=== PATIENT | female | born 1980 | race Caucasian/White ===

== ENCOUNTER 2017-03-01 06:24 | Emergency (ER) | payer OTHER ==
[~2017-03-01] VITALS: Ht 167.6 cm; Wt 88.4 kg
[~2017-03-01 06:24] MED LIST: AMPH30TA2 PO; CITA40TA12 PO; FERR1TAB23 PO; HYDR-5688 PO; RANI300T2 PO; WLLSR/300 PO
[2017-03-01 06:25] VITALS: TEMP 36.7; Ht 167.6 cm; Wt 88.4 kg
[2017-03-01] MEDS ORDERED: ONDANSETRON INJ 2 MG/ML 2 ML VIAL IV STA (06:40)
[2017-03-01] MEDS ORDERED: SODIUM CHLORIDE 0.9% 1000ML 1,000 ML IV STA (06:40)
[2017-03-01 06:48] LABS: BASO % 0.7 %; BASO ABS # 0.05 K/uL (0-0.2); COMPLETE YES; EOS % 2.1 %; HEMATOCRIT 42.9 % (37-47); IG% 0.4 %; LYMPH ABS # 2.01 K/uL (1.2-3.4); MEAN CELL VOLUME 95.3 fL (80-100); MEAN CORPUSCULAR HEMOGLOBIN 28.9 pg (25-34); MEAN CORPUSCULAR HGB CONC 30.3 g/dl (32-36); MEAN PLATELET VOLUME 9.1 fL (7.4-10.4); MONO % 8.4 %; NEUT % 58.4 %; PLATELET COUNT 474 K/uL (130-400)
[2017-03-01] MEDS ORDERED: LIDOCAINE HCL 2% VISC SOLN 20 ML UDC PO STA (06:52)
[2017-03-01] MEDS ORDERED: KETOROLAC TROMETHAMINE 30 MG/ML VIAL IV STA (06:52)
[2017-03-01] MEDS ORDERED: ALUMINUM/MAGNESIUM SUSP 30 ML UDC PO STA (06:52)
[2017-03-01 07:08] LABS: ALT/SGPT 20 U/L (12-78); BLOOD UREA NITROGEN 8 mg/dl (7-18); BUN/CREATININE RATIO 10.8 (10-20); CARBON DIOXIDE 27 mmol/L (21-32); CHLORIDE 106 mmol/L (98-107); CREATININE 0.76 mg/dl (0.60-1.20); GLUCOSE 62 mg/dl (70-99); POTASSIUM 3.3 mmol/L (3.5-5.1); SODIUM 142 mmol/L (136-145)
[2017-03-01 07:09] LABS: CALCIUM 8.8 mg/dl (8.5-10.1)
[2017-03-01 07:11] LABS: ALKALINE PHOSPHATASE 89 U/L (45-117); AST/SGOT 17 U/L (15-37)
--- NOTE | 2017-03-01 07:11 | DIAGNOSTIC IMAGING REPORT ---
CHEST ONE VIEW PORTABLE CLINICAL HISTORY: Abdominal pain. COMPARISON STUDY: No previous studies for comparison. FINDINGS: No lucency is identified under the hemidiaphragms to suggest pneumoperitoneum on this exam. Lung volumes are normal. There is no pneumothorax or pleural effusion. Cardiac size is normal. Mediastinal contours are normal. There is no evidence of pulmonary edema. IMPRESSION: No acute cardiopulmonary findings. Electronically signed by: Jesus Dobson M.D. 03/01/2017 7:10 AM Dictated Date/Time: 03/01/2017 7:09 AM
[2017-03-01 07:51] LABS: URINE APPEARANCE CLOUDY (CLEAR); URINE BILIRUBIN NEG (NEG); URINE COLOR DK YELLOW; URINE EPITHELIAL CELL AUTO >30 /lpf (0-5); URINE NITRITE NEG (NEG); URINE PH 5.5 (4.5-7.5); URINE SPECIFIC GRAVITY 1.027 (1.000-1.030); UROBILINOGEN NEG (NEG); ZZUR CULT IF INDIC CLEAN CATCH YES
[2017-03-01 07:54] LABS: MANUAL MICROSCOPIC REQUIRED? NO; REVIEW REQ? YES
[2017-03-01 08:06] LABS: URINE MUCUS PRESENT (NONE PRSENT)
[2017-03-01] MEDS ORDERED: CRFL PO (09:06)
--- NOTE | 2017-03-01 09:07 | EMERGENCY ROOM VISIT NOTE ---
History Report prepared by Mere: Jasmin Molina Under the Supervision of: Dr. Cain Lewis D.O. First contact with patient: 06:39 Chief Complaint: ABDOMINAL PAIN Stated Complaint: BURNING PAIN IN MIDDLE OF STOMACH History of Present Illness The patient is a 36 year old female who presents to the Emergency Room with complaints of worsening upper mid and left-sided abdominal pain that started this morning. She describes the pain as burning. The pain radiates into her back bilaterally. She is also experiencing nausea. The patient states that she felt well last night and she denies any recent changes in her diet. The patient ate a quarter of a chicken cheesesteak last night with just lettuce and mayonnaise, but otherwise denies eating anything suspicious. The patient has a history of a hiatal hernia. The patient also has a history of gastric bypass, 2 sections, and a hysterectomy. She states that she had a hysterectomy secondary to a persistent menstrual period for 6 months. The patient denies any other previous abdominal surgeries. She also denies any previous gallbladder problems. Source of History: patient Onset: this morning Position: abdomen (upper mid and left-sided) Quality: burning Timing: worsening Associated Symptoms: + nausea, + back pain Review of Systems See HPI for pertinent positives & negatives. A total of 10 systems reviewed and were otherwise negative. Past Medical & Surgical Medical Problems: (1) Anemia (2) Depression (3) Ovarian cyst Surgical Problems: (1) Gastric bypass status for obesity (2) S/P section (3) S/P hysterectomy Family History No pertinent family history Social History Smoking Status: Never Smoker Alcohol Use: none Marital Status: Housing Status: lives with family Occupation Status: employed Current/Historical Medications Scheduled Amphetamine-Dextroamphetamine 30MG (Adderall 30MG), 30 MG PO BID Bupropion HCl (Wellbutrin Xl), 1 TAB PO DAILY Citalopram Hydrobromide (Celexa), 40 MG PO DAILY Ferrous Sulfate (Iron), 1 TAB PO DAILY Ranitidine (Zantac), 300 MG PO DAILY Sucralfate (Carafate), 10 ML PO BID Allergies Coded Allergies: No Known Allergies (Unverified , 03/01/17) Physical Exam Vital Signs Date Time Temp Pulse Resp B/P (MAP) Pulse Ox O2 Delivery O2 Flow Rate FiO2 03/01/17 08:29 80 18 118/69 100 Room Air 03/01/17 06:25 36.7 100 20 137/81 100 Room Air Physical Exam CONSTITUTIONAL/VITAL SIGNS: Reviewed / noted above. GENERAL: Non-toxic in appearance. INTEGUMENTARY: Warm, dry, and [place]. HEAD: Normocephalic. EYES: without scleral icterus or trauma. ENT/OROPHARYNX: clear and moist. LYMPHADENOPATHY/NECK: Is supple without lymphadenopathy or meningismus. RESPIRATORY: Lungs clear and equal. CARDIOVASCULAR: Regular rate and rhythm. GI/ABDOMEN: Soft. Epigastric and left upper quadrant tenderness. No organomegaly or pulsatile mass. No rebound or guarding. Normal bowel sounds. EXTREMITIES: Warm and well perfused. BACK: No CVA tenderness. NEUROLOGICAL: Intact without focal deficits. PSYCHIATRIC: normal affect. MUSCULOSKELETAL: Normally developed with good muscle tone. Medical Decision & Procedures ER Provider Diagnostic Interpretation: Radiology results as stated below per my review and radiologist interpretation: CHEST ONE VIEW PORTABLE FINDINGS: No lucency is identified under the hemidiaphragms to suggest pneumoperitoneum on this exam. Lung volumes are normal. There is no pneumothorax or pleural effusion. Cardiac size is normal. Mediastinal contours are normal. There is no evidence of pulmonary edema. IMPRESSION: No acute cardiopulmonary findings. Electronically signed by: Jesus Dobson M.D. 03/01/2017 7:10 AM Dictated Date/Time: 03/01/2017 7:09 AM Laboratory Results 03/01/17 06:35 Red Blood Count 4.50, Mean Corpuscular Volume 95.3, Mean Corpuscular Hemoglobin 28.9, Mean Corpuscular Hemoglobin Concent 30.3, Mean Platelet Volume 9.1, Neutrophils (%) (Auto) 58.4, Lymphocytes (%) (Auto) 30.0, Monocytes (%) (Auto) 8.4, Eosinophils (%) (Auto) 2.1, Basophils (%) (Auto) 0.7, Neutrophils # (Auto) 3.91, Lymphocytes # (Auto) 2.01, Monocytes # (Auto) 0.56, Eosinophils # (Auto) 0.14, Basophils # (Auto) 0.05 03/01/17 06:35 Test 03/01/17 06:25 03/01/17 06:35 Urine Color DK YELLOW Urine Appearance CLOUDY (CLEAR) Urine pH 5.5 (4.5-7.5) Urine Specific Arrey 1.027 (1.000-1.030) Urine Protein NEG (NEG) Urine Glucose (UA) NEG (NEG) Urine Ketones TRACE (NEG) Urine Occult Blood NEG (NEG) Urine Nitrite NEG (NEG) Urine Bilirubin NEG (NEG) Urine Urobilinogen NEG (NEG) Urine Leukocyte Esterase NEG (NEG) Urine WBC (Auto) 1-5 /hpf (0-5) Urine RBC (Auto) 0-4 /hpf (0-4) Urine Hyaline Casts (Auto) 1-5 /lpf (0-5) Urine Epithelial Cells (Auto) >30 /lpf (0-5) Urine Bacteria (Auto) 2+ (NEG) Urine Crystals CALCIUM OXALATE (NONE Urine Pathogenic Casts /lpf (0) Urine Mucus PRESENT (NONE PRSENT) White Blood Count 6.70 K/uL (4.8-10.8) Red Blood Count 4.50 M/uL (4.2-5.4) Hemoglobin 13.0 g/dL (12.0-16.0) Hematocrit 42.9 % (37-47) Mean Corpuscular Volume 95.3 fL (80-100) Mean Corpuscular Hemoglobin 28.9 pg (25-34) Mean Corpuscular Hemoglobin Concent 30.3 g/dl (32-36) Platelet Count 474 K/uL (130-400) Mean Platelet Volume 9.1 fL (7.4-10.4) Neutrophils (%) (Auto) 58.4 % Lymphocytes (%) (Auto) 30.0 % Monocytes (%) (Auto) 8.4 % Eosinophils (%) (Auto) 2.1 % Basophils (%) (Auto) 0.7 % Neutrophils # (Auto) 3.91 K/uL (1.4-6.5) Lymphocytes # (Auto) 2.01 K/uL (1.2-3.4) Monocytes # (Auto) 0.56 K/uL (0.11-0.59) Eosinophils # (Auto) 0.14 K/uL (0-0.5) Basophils # (Auto) 0.05 K/uL (0-0.2) RDW Standard Deviation 42.5 fL (36.4-46.3) RDW Coefficient of Variation 12.3 % (11.5-14.5) Immature Granulocyte % (Auto) 0.4 % Immature Granulocyte # (Auto) 0.03 K/uL (0.00-0.02) Anion Gap 9.0 mmol/L (3-11) Est Creatinine Clear Calc Drug Dose 114.6 ml/min Estimated GFR () 117.0 Estimated GFR (Non- 100.9 BUN/Creatinine Ratio 10.8 (10-20) Calcium Level 8.8 mg/dl (8.5-10.1) Total Bilirubin 0.3 mg/dl (0.2-1) Direct Bilirubin < 0.1 mg/dl (0-0.2) Aspartate Amino Transf (AST/SGOT) 17 U/L (15-37) Alanine Aminotransferase (ALT/SGPT) 20 U/L (12-78) Alkaline Phosphatase 89 U/L (45-117) Total Protein 7.3 gm/dl (6.4-8.2) Albumin 3.8 gm/dl (3.4-5.0) Lipase 193 U/L (73-393) Laboratory results as stated above per my review. Medications Administered Medications (Trade) Dose Ordered Sig/Maylin Route Start Time Stop Time Status Last Admin Dose Admin Sodium Chloride 1,000 ml @ 999 mls/hr Q1H1M STAT IV 03/01/17 06:40 03/01/17 07:40 DC 03/01/17 06:48 999 MLS/HR Ondansetron HCl (Zofran Inj) 4 mg NOW STAT IV 03/01/17 06:40 03/01/17 06:41 DC 03/01/17 06:48 4 MG Al Hydroxide/Mg Hydroxide (Maalox Susp) 30 ml NOW STAT PO 03/01/17 06:52 03/01/17 06:53 DC 03/01/17 07:07 30 ML Lidocaine HCl (Viscous Lidocaine 2% Soln) 10 ml NOW STAT PO 03/01/17 06:52 03/01/17 06:53 DC 03/01/17 07:07 10 ML Ketorolac Tromethamine (Toradol Inj) 30 mg NOW STAT IV 03/01/17 06:52 03/01/17 06:53 DC 03/01/17 07:06 30 MG ED Course 0640: Ordered Zofran Inj 4 mg IV, Sodium Chloride 1000 ml @ 999 mls/hr IV 0650: Previous medical records were reviewed. The patient was evaluated in room A3. A complete history and physical examination was performed. 0652: Ordered Toradol Inj 30 mg IV, Lidocaine HCl 10 ml PO, Maalox Susp 30 ml PO 0835: On reevaluation, the patient is doing better. I discussed the results and findings with the patient. She verbalized agreement of the treatment plan. She was discharged home. Medical Decision Differential considered: pancreatitis, hepatitis, or acute cholecystitis, AAA, UTI, pyelonephritis, kidney stones, appendicitis, diverticulitis, shingles, bowel obstruction mesenteric ischemia, intussusception, hernia, ovarian torsion , ruptured ovarian cyst. Medication Reconciliation: I attest that I have personally reviewed the patient' s current medication list. Patient was found to have a slightly elevated blood pressure due to circumstances. I do not believe that the patient requires hypertension monitoring. This is a 36-year-old female who presents to the ED with a chief complaint of epigastric abdominal pain. The patient states that it is a burning type sensation and radiates into the back. It is associated with nausea. It seemed to be worsening since this morning when it started when she awoke. Her vital signs are stable. Her physical exam revealed some epigastric tenderness. There is some left upper quadrant tenderness as well. There was no right upper quadrant tenderness. The patient's exam was otherwise unremarkable. She is in no distress. A chest x-ray did not show acute disease. CBC and complete metabolic panel were normal. Urine did not show infection. Lipase was normal. The patient was told results the test. She was treated with IV Toradol for her symptoms. She was given a GI cocktail. She was given IV fluids and IV Zofran. She was felt to be stable for discharge. Her symptoms did improve somewhat this. She will be discharged on Carafate. She was also recommended to take [id number] antacids or acid reducing agents. She will return for worsening or new concerns. She also is recommended to follow-up with her PCP for recheck within one week. Impression Primary Impression: Epigastric abdominal pain Additional Impression: LUQ abdominal pain Scribe Attestation The scribe's documentation has been prepared under my direction and personally reviewed by me in its entirety. I confirm that the note above accurately reflects all work, treatment, procedures, and medical decision making performed by me. Departure Information Dispostion Home / Self-Care Prescriptions Sucralfate (CARAFATE) 1 Gm/10 Ml Niharika 10 ML PO BID for 6 Days, #120 ML 1 Refill Prov: Cain Lewis D.O. 03/01/17 Referrals Ruddy Fowler D.O. (PCP) Forms Call Back Authorization, HOME CARE DOCUMENTATION FORM, IMPORTANT VISIT INFORMATION Patient Instructions My [facility] Additional Instructions Use [id number] antacids and acid reducing agents like Pepcid or Zantac for 1-2 weeks. Carafate as prescribed. Follow-up with your doctor in 1 week for recheck. Return here for worsening or new symptoms. Problem Qualifiers
[2017-03-01 09:47] VITALS: BP 116/66; PULSE 91; O2SAT 100
== END 2017-03-01 09:30 | disposition home or self-care (01) ==
LOC: C.EDB 06:25 → C.EDA 09:30
DX: R10.13 Epigastric pain (principal); R10.12 Left upper quadrant pain; F32.9 Major depressive disorder, single episode, unspecified; Z98.84 Bariatric surgery status; Z90.710 Acquired absence of both cervix and uterus; Z98.891 History of uterine scar from previous surgery; Z79.899 Other long term (current) drug therapy

== ENCOUNTER 2017-06-20 18:52 | Emergency (ER) | payer OTHER ==
[~2017-06-20] VITALS: Ht 167.6 cm; Wt 89.0 kg
[~2017-06-20 18:52] MED LIST changes: +CRFL PO; -HYDR-5688 PO
[2017-06-20 19:01] VITALS: TEMP 36.8; Ht 167.6 cm; Wt 89.0 kg
[2017-06-20 19:35] LABS: URINE APPEARANCE CLEAR (CLEAR); URINE BILIRUBIN NEG (NEG); URINE COLOR YELLOW; URINE NITRITE NEG (NEG); URINE PH 5.5 (4.5-7.5); URINE SPECIFIC GRAVITY 1.012 (1.000-1.030); UROBILINOGEN NEG (NEG)
[2017-06-20 19:43] LABS: MANUAL MICROSCOPIC REQUIRED? NO; REVIEW REQ? NO
[2017-06-20] MEDS ORDERED: KETOROLAC TROMETHAMINE 30 MG/ML VIAL IV STA (20:18)
[2017-06-20] MEDS ORDERED: MoRPHine SULFATE 4 MG/ML 1 ML CARP\\VIAL IV STA (20:18)
[2017-06-20] MEDS ORDERED: ONDANSETRON INJ 2 MG/ML 2 ML VIAL IV STA (20:18)
[2017-06-20] MEDS ORDERED: ACETAMINOPHEN 500 MG TAB PO STA (20:18)
[2017-06-20] MEDS ORDERED: SODIUM CHLORIDE 0.9% 1000ML 1,000 ML IV STA (20:18)
--- NOTE | 2017-06-20 20:31 | EMERGENCY ROOM VISIT NOTE ---
History Report prepared by Mere: Brigido Doherty Under the Supervision of: Dr. Micheal Chicas M.D. First contact with patient: 19:40 Chief Complaint: BACK PAIN Stated Complaint: BLOATING, WEIGHT GAIN, LOWER LT BACK PAIN, DIZZY History of Present Illness The patient is a 36 year old white female with a past medical history of gastric bypass, ruptured ovarian cyst, hysterectomy, , and depression who presents to the ED with a cc of constant burning back pain beginning this morning. Positive abdominal pain, weight gain, dizziness, nausea, and urinary frequency. Negative vomiting, trauma, hematuria, blood thinners, history of kidney stones. This feels like her past ruptured ovarian cyst. She is not eating well, and her last BM was last night. She has taken Tylenol which has not helped. She does not get periods due to a hysterectomy 7 years ago. Source of History: patient Onset: this morning Position: back Quality: burning Timing: constant Associated Symptoms: + nausea, + abdominal pain, + urinary symptoms Note: Associated symptoms: dizziness and weight gain Review of Systems See HPI for pertinent positives and negatives. A total of ten systems were reviewed and were otherwise negative. Past Medical & Surgical Medical Problems: (1) Anemia (2) Depression (3) Ovarian cyst Surgical Problems: (1) Gastric bypass status for obesity (2) S/P section (3) S/P hysterectomy Family History No pertinent family history Social History Smoking Status: Never Smoker Alcohol Use: none Marital Status: Housing Status: lives with family Occupation Status: employed Current/Historical Medications Scheduled Amphetamine-Dextroamphetamine 30MG (Adderall 30MG), 30 MG PO BID Bupropion HCl (Wellbutrin Xl), 1 TAB PO DAILY Citalopram Hydrobromide (Celexa), 40 MG PO DAILY Ferrous Sulfate (Iron), 1 TAB PO DAILY Ranitidine (Zantac), 300 MG PO DAILY Scheduled PRN Tramadol (Ultram), 50 MG PO Q8H PRN for Pain Allergies Coded Allergies: No Known Allergies (Unverified , 06/20/17) Physical Exam Vital Signs Date Time Temp Pulse Resp B/P (MAP) Pulse Ox O2 Delivery O2 Flow Rate FiO2 06/20/17 23:17 71 20 117/61 99 06/20/17 21:00 85 20 134/76 100 Room Air 06/20/17 19:01 36.8 111 20 124/69 100 Room Air Physical Exam GENERAL: Awake, alert, [id number], in mild discomfort. HENT: Normocephalic, atraumatic. EYES: Normal conjunctiva. Sclera non-icteric. NECK: Supple. No nuchal rigidity. FROM. RESPIRATORY: CTAB, no rhonchi, wheezing, crackles CARDIAC: RRR, no MRG ABDOMEN: Right suprapubic and LLQ TTP with greatest pain in the LLQ. Negative obturators and psoas. Soft, ND, BS+ MSK: Left CVA TTP No chest wall TTP, no LE edema NEURO: GCS 15, CN 2-12 intact, moves all 4s on command SKIN: No rash or jaundice noted. Medical Decision & Procedures ER Provider Diagnostic Interpretation: Radiology results as stated below per my review and radiologist interpretation: ULTRASOUND KIDNEYS AND BLADDER CLINICAL HISTORY: Urinary frequency. COMPARISON STUDY: Abdominal CT dated 04/16/2016. TECHNIQUE: Real-time, grayscale, and color flow sonography of the kidneys and bladder is performed. Images are reviewed in the transverse and longitudinal planes. FINDINGS: Kidneys: The kidneys are normal in size and echotexture. The right kidney measures 11.1 x 5.6 x 5.8 cm and the left kidney measures 13.5 x 7.2 x 7.7 cm. There is no hydronephrosis. No shadowing renal calculi are identified. There is no sonographic evidence of contour deforming renal mass lesion. No perinephric fluid is identified. Bladder: The bladder is normal in appearance. Bilateral ureteral jets were seen. IMPRESSION: Unremarkable sonographic assessment of the kidneys and bladder. Electronically signed by: Prashant Rivas M.D. 06/20/2017 10:35 PM Dictated Date/Time: 06/20/2017 10:34 PM ULTRASOUND OF THE PELVIS CLINICAL HISTORY: Pelvic pain. COMPARISON STUDY: Pelvic CT dated 04/16/2016. TECHNIQUE: Real-time, grayscale, and color flow sonography of the pelvis is performed both transabdominally and endovaginally. Images are reviewed in the transverse and longitudinal planes. FINDINGS: Uterus: The uterus is surgically absent. The vaginal cuff is normal as imaged. Ovaries: The ovaries right ovary was not visualized. The left ovary is normal in appearance and measures 2.8 x 2.1 x 2.4 cm. There are numerous small left ovarian follicles. Normal Doppler waveforms are shown within the left ovary. Pelvis: There is no free fluid in the cul-de-sac. No concerning adnexal lesion is seen. IMPRESSION: 1. The uterus is surgically absent. 2. Unremarkable sonographic assessment of the left ovary. 3. The right ovary was not visualized. Electronically signed by: Prashant Rivas M.D. 06/20/2017 10:37 PM Dictated Date/Time: 06/20/2017 10:35 PM ULTRASOUND OF THE PELVIS CLINICAL HISTORY: Pelvic pain. COMPARISON STUDY: Pelvic CT dated 04/16/2016. TECHNIQUE: Real-time, grayscale, and color flow sonography of the pelvis is performed both transabdominally and endovaginally. Images are reviewed in the transverse and longitudinal planes. FINDINGS: Uterus: The uterus is surgically absent. The vaginal cuff is normal as imaged. Ovaries: The ovaries right ovary was not visualized. The left ovary is normal in appearance and measures 2.8 x 2.1 x 2.4 cm. There are numerous small left ovarian follicles. Normal Doppler waveforms are shown within the left ovary. Pelvis: There is no free fluid in the cul-de-sac. No concerning adnexal lesion is seen. IMPRESSION: 1. The uterus is surgically absent. 2. Unremarkable sonographic assessment of the left ovary. 3. The right ovary was not visualized. Electronically signed by: Prashant Rivas M.D. 06/20/2017 10:37 PM Dictated Date/Time: 06/20/2017 10:35 PM Laboratory Results 06/20/17 20:55 Red Blood Count 3.85, Mean Corpuscular Volume 94.5, Mean Corpuscular Hemoglobin 30.4, Mean Corpuscular Hemoglobin Concent 32.1, Mean Platelet Volume 9.6, Neutrophils (%) (Auto) 50.3, Lymphocytes (%) (Auto) 37.5, Monocytes (%) (Auto) 9.1, Eosinophils (%) (Auto) 1.4, Basophils (%) (Auto) 1.4, Neutrophils # (Auto) 3.32, Lymphocytes # (Auto) 2.47, Monocytes # (Auto) 0.60, Eosinophils # (Auto) 0.09, Basophils # (Auto) 0.09 06/20/17 20:55 Test 06/20/17 19:10 10/3/17 20:55 Urine Color YELLOW Urine Appearance CLEAR (CLEAR) Urine pH 5.5 (4.5-7.5) Urine Specific [place] 1.012 (1.000-1.030) Urine Protein NEG (NEG) Urine Glucose (UA) NEG (NEG) Urine Ketones NEG (NEG) Urine Occult Blood NEG (NEG) Urine Nitrite NEG (NEG) Urine Bilirubin NEG (NEG) Urine Urobilinogen NEG (NEG) Urine Leukocyte Esterase NEG (NEG) White Blood Count 6.59 K/uL (4.8-10.8) Red Blood Count 3.85 M/uL (4.2-5.4) Hemoglobin 11.7 g/dL (12.0-16.0) Hematocrit 36.4 % (37-47) Mean Corpuscular Volume 94.5 fL (80-100) Mean Corpuscular Hemoglobin 30.4 pg (25-34) Mean Corpuscular Hemoglobin Concent 32.1 g/dl (32-36) Platelet Count 421 K/uL (130-400) Mean Platelet Volume 9.6 fL (7.4-10.4) Neutrophils (%) (Auto) 50.3 % Lymphocytes (%) (Auto) 37.5 % Monocytes (%) (Auto) 9.1 % Eosinophils (%) (Auto) 1.4 % Basophils (%) (Auto) 1.4 % Neutrophils # (Auto) 3.32 K/uL (1.4-6.5) Lymphocytes # (Auto) 2.47 K/uL (1.2-3.4) Monocytes # (Auto) 0.60 K/uL (0.11-0.59) Eosinophils # (Auto) 0.09 K/uL (0-0.5) Basophils # (Auto) 0.09 K/uL (0-0.2) RDW Standard Deviation 44.8 fL (36.4-46.3) RDW Coefficient of Variation 13.0 % (11.5-14.5) Immature Granulocyte % (Auto) 0.3 % Immature Granulocyte # (Auto) 0.02 K/uL (0.00-0.02) Anion Gap 7.0 mmol/L (3-11) Est Creatinine Clear Calc Drug Dose 143.2 ml/min Estimated GFR () 135.2 Estimated GFR (Non- 116.6 BUN/Creatinine Ratio 15.9 (10-20) Calcium Level 9.2 mg/dl (8.5-10.1) Total Bilirubin 0.4 mg/dl (0.2-1) Direct Bilirubin < 0.1 mg/dl (0-0.2) Aspartate Amino Transf (AST/SGOT) 20 U/L (15-37) Alanine Aminotransferase (ALT/SGPT) 21 U/L (12-78) Alkaline Phosphatase 75 U/L (45-117) Total Protein 6.8 gm/dl (6.4-8.2) Albumin 3.8 gm/dl (3.4-5.0) Lipase 136 U/L (73-393) Laboratory results reviewed by me Medications Administered Medications (Trade) Dose Ordered Sig/Maylin Route Start Time Stop Time Status Last Admin Dose Admin Sodium Chloride 1,000 ml @ 999 mls/hr Q1H1M STAT IV 06/20/17 20:18 06/20/17 21:18 DC 06/20/17 20:18 999 MLS/HR Ondansetron HCl (Zofran Inj) 4 mg NOW STAT IV 06/20/17 20:18 06/20/17 20:21 DC 06/20/17 20:18 4 MG Ketorolac Tromethamine (Toradol Inj) 30 mg NOW STAT IV 06/20/17 20:18 06/20/17 20:21 DC 06/20/17 20:18 30 MG Acetaminophen (Tylenol Tab) 1,000 mg NOW STAT PO 06/20/17 20:18 06/20/17 20:21 DC 06/20/17 20:18 1,000 MG Morphine Sulfate (MoRPHine SULFATE INJ) 4 mg NOW STAT IV 06/20/17 20:18 06/20/17 20:21 DC 06/20/17 20:18 4 MG Oxycodone HCl (Roxicodone Immediate Rel Tab) 5 mg NOW STAT PO 06/20/17 22:41 06/20/17 22:44 DC 06/20/17 22:55 5 MG Tramadol HCl (Ultram Tab) 25 mg NOW STAT PO 06/20/17 22:41 06/20/17 22:44 DC 06/20/17 22:55 25 MG Fentanyl Citrate (Fentanyl Inj) 75 mcg NOW ONCE IV 06/20/17 22:45 06/20/17 22:46 DC 06/20/17 22:55 75 MCG ECG Indication: back/shoulder pain Rate (beats per minute): 77 Rhythm: normal sinus Findings: no ectopy, other (Normal intervals. No STS changes ot TWI) ED Course 1954: The patient was evaluated in room B4. A complete history and physical exam was performed. 2241: I reevaluated the patient, ad she was not feeling that much better. Discussed results and discharge instructions: She verbalized understanding and agreement. The patient is ready for discharge. Medical Decision The patient is a 36 year old white female with a past medical history of gastric bypass, ruptured ovarian cyst, hysterectomy, , and depression who presents to the ED with a cc of constant burning back pain beginning this morning. Positive abdominal pain, weight gain, dizziness, nausea, and urinary frequency. Negative vomiting, trauma, hematuria, blood thinners, history of kidney stones. This feels like her past ruptured ovarian cyst. She is not eating well, and her last BM was last night. She has taken Tylenol which has not helped. She does not get periods due to a hysterectomy 7 years ago. Triage Nursing notes reviewed. The patient's presentation and history were concerning for etiologies such as appendicitis, diverticulitis, PUD, biliary pathology, UTI, pancreatitis, obstruction, mesenteric ischemia, aortic pathology, infections, inflammatory bowel disease, renal colic, as well as others were entertained. Patient seen and eval'ed at bedside. States has had some pain beginning this AM approx 12 hrs LAY OUT [employer]. Tried some motrin w/o improvement. Labs, UA, and US completed along w/ suportive care. Patient did have some L sided CVATTP but had stated no blood in urine, only urinary frequency. No vaginal bleeding or discharge. She thought this was similar to ruptured ovarian cyst in past. Had labs completed. AFVSS, initially tachy but resolved w/ pain control and IVF. WBC WNL. UA neg for blood or infection. Renal US negative. TVUS negative for acute pathology. No R ovary seen but pain all L sided. no evidence of torsion, free fluid, or cysts. Patient was told of all findings. Pain only mildly improved. Patient w/o any active vomiting and has had recent bowel movement, and even given h/o of RYGB, no CT was obtained given these findings w/ complete normal WBC, LFTs, lipase, and UA w/ normal USs and AFVSS. Patient informed of this and given pain control for home and to f/u w/ here agent licensing clerk and/or PCP as needed. Patient given strict f/u, d/c, and return precautions and d/c'ed to home. Medication Reconcilliation Current Medication List: was personally reviewed by me Blood Pressure Screening Patient's blood pressure: Normal blood pressure Impression Primary Impression: Flank pain Scribe Attestation The scribe's documentation has been prepared under my direction and personally reviewed by me in its entirety. I confirm that the note above accurately reflects all work, treatment, procedures, and medical decision making performed by me. Departure Information Dispostion Home / Self-Care Prescriptions Tramadol (Ultram) 50 Mg Tab 50 MG PO Q8H Y for Pain, #9 TAB Prov: Micheal Chicas M.D. 06/20/17 Referrals Ruddy Fowler D.O. (PCP) Patient Instructions ED Flank Pain Uncertain Cause, My [facility] Additional Instructions Please return to the emergency department if you have worsening or recurrent symptoms not amenable to at-home treatment. Please call for a follow-up appointment with her primary care physician. Please take your medications as prescribed. If you have other concerns and/or complaints please feel free to also call your primary care physician's office or return the ED for further evaluation, management, and treatment. You received narcotic or benzodiazepene medication while in the emergency room today. This is an addictive medication that may cause drowziness as well as constipation. Do not drive, operate heavy machinery, or drink alcohol under the influence of this medication. You may take 600 mg Ibuprofen every 6 hours as needed for pain with food for no more than 2 consecutive days. You may take tylenol 1000mg every 6 hours as needed for pain. You may take motrin and tylenol separately or at the same time. Take tramadol for breakthrough pain. You have been examined and treated today on an emergency basis only. This is not a substitute for, or an effort to provide, complete comprehensive medical care. It is impossible to recognize and treat all injuries or illnesses in a single emergency department visit. It is therefore important that you follow up closely with [facility]. Call as soon as possible for an appointment. Thank you for your time and consideration. I look forward to speaking with you again soon. Please don't hesitate to call us if you have any questions.
[2017-06-20 21:03] LABS: BASO % 1.4 %; BASO ABS # 0.09 K/uL (0-0.2); COMPLETE YES; EOS % 1.4 %; HEMATOCRIT 36.4 % (37-47); IG% 0.3 %; LYMPH % 37.5 %; LYMPH ABS # 2.47 K/uL (1.2-3.4); MEAN CELL VOLUME 94.5 fL (80-100); MEAN CORPUSCULAR HEMOGLOBIN 30.4 pg (25-34); MEAN CORPUSCULAR HGB CONC 32.1 g/dl (32-36); MEAN PLATELET VOLUME 9.6 fL (7.4-10.4); MONO % 9.1 %; NEUT % 50.3 %; PLATELET COUNT 421 K/uL (130-400); RED BLOOD COUNT 3.85 M/uL (4.2-5.4); WHITE BLOOD COUNT 6.59 K/uL (4.8-10.8)
[2017-06-20 21:21] LABS: ALT/SGPT 21 U/L (12-78); AST/SGOT 20 U/L (15-37); BLOOD UREA NITROGEN 10 mg/dl (7-18); BUN/CREATININE RATIO 15.9 (10-20); CALCIUM 9.2 mg/dl (8.5-10.1); CARBON DIOXIDE 25 mmol/L (21-32); CHLORIDE 107 mmol/L (98-107); CREATININE 0.61 mg/dl (0.60-1.20); GLUCOSE 85 mg/dl (70-99); SODIUM 139 mmol/L (136-145)
[2017-06-20 21:23] LABS: ALKALINE PHOSPHATASE 75 U/L (45-117)
--- NOTE | 2017-06-20 22:36 | DIAGNOSTIC IMAGING REPORT ---
ULTRASOUND KIDNEYS AND BLADDER CLINICAL HISTORY: Urinary frequency. COMPARISON STUDY: Abdominal CT dated 04/16/2016. TECHNIQUE: Real-time, grayscale, and color flow sonography of the kidneys and bladder is performed. Images are reviewed in the transverse and longitudinal planes. FINDINGS: Kidneys: The kidneys are normal in size and echotexture. The right kidney measures 11.1 x 5.6 x 5.8 cm and the left kidney measures 13.5 x 7.2 x 7.7 cm. There is no hydronephrosis. No shadowing renal calculi are identified. There is no sonographic evidence of contour deforming renal mass lesion. No perinephric fluid is identified. Bladder: The bladder is normal in appearance. Bilateral ureteral jets were seen. IMPRESSION: Unremarkable sonographic assessment of the kidneys and bladder. Electronically signed by: Prashant Rivas M.D. 06/20/2017 10:35 PM Dictated Date/Time: 06/20/2017 10:34 PM
--- NOTE | 2017-06-20 22:38 | DIAGNOSTIC IMAGING REPORT ---
ULTRASOUND OF THE PELVIS CLINICAL HISTORY: Pelvic pain. COMPARISON STUDY: Pelvic CT dated 04/16/2016. TECHNIQUE: Real-time, grayscale, and color flow sonography of the pelvis is performed both transabdominally and endovaginally. Images are reviewed in the transverse and longitudinal planes. FINDINGS: Uterus: The uterus is surgically absent. The vaginal cuff is normal as imaged. Ovaries: The ovaries right ovary was not visualized. The left ovary is normal in appearance and measures 2.8 x 2.1 x 2.4 cm. There are numerous small left ovarian follicles. Normal Doppler waveforms are shown within the left ovary. Pelvis: There is no free fluid in the cul-de-sac. No concerning adnexal lesion is seen. IMPRESSION: 1. The uterus is surgically absent. 2. Unremarkable sonographic assessment of the left ovary. 3. The right ovary was not visualized. Electronically signed by: Prashant Rivas M.D. 06/20/2017 10:37 PM Dictated Date/Time: 06/20/2017 10:35 PM
[2017-06-20] MEDS ORDERED: TRAMADOL HCL 50 MG TAB PO STA (22:41)
[2017-06-20] MEDS ORDERED: OXYCODONE HCL IR 5 MG TAB (IMMEDIATE RELEASE) PO STA (22:41)
[2017-06-20] MEDS ORDERED: FENTANYL CITRATE INJ 50 MCG/1 ML 2 ML VIAL IV ONE (22:45)
[2017-06-20] MEDS ORDERED: TRAM-10 PO (22:54)
[2017-06-20 23:17] VITALS: BP 117/61; PULSE 71; O2SAT 99
== END 2017-06-20 23:18 | disposition home or self-care (01) ==
LOC: C.EDB 18:53
DX: R10.30 Lower abdominal pain, unspecified (principal); N83.209 Unspecified ovarian cyst, unspecified side; F32.9 Major depressive disorder, single episode, unspecified; D64.9 Anemia, unspecified; Z87.442 Personal history of urinary calculi; Z98.84 Bariatric surgery status; Z90.710 Acquired absence of both cervix and uterus; Z79.899 Other long term (current) drug therapy

== ENCOUNTER 2017-12-13 19:30 | Emergency (ER) | payer OTHER ==
[~2017-12-13 19:30] MED LIST changes: -CRFL PO; +TRAM-10 PO
[2017-12-13] MEDS: KETOROLAC TROMETHAMINE 30 MG/ML VIAL ONE (22:33)
[2017-12-13] MEDS: METOCLOPRAMIDE HCL INJ 5 MG/ML 2 ML VIAL ONE (22:33)
[2017-12-13] MEDS ORDERED: SODIUM CHLORIDE 0.9% 1000ML 1,000 ML IV STA (22:57)
[2017-12-13] MEDS ORDERED: OPTIRAY 320 IV PRN (23:15)
[2017-12-13 23:25] LABS: BASO % 1.3 %; BASO ABS # 0.08 K/uL (0-0.2); EOS % 3.2 %; HEMATOCRIT 33.6 % (37-47); HEMOGLOBIN 11.2 g/dL (12.0-16.0); IG# 0.01 K/uL (0.00-0.02); LYMPH % 43.3 %; LYMPH ABS # 2.71 K/uL (1.2-3.4); MEAN CELL VOLUME 92.6 fL (80-100); MEAN CORPUSCULAR HEMOGLOBIN 30.9 pg (25-34); MEAN CORPUSCULAR HGB CONC 33.3 g/dl (32-36); MEAN PLATELET VOLUME 9.7 fL (7.4-10.4); MONO % 8.3 %; MONO ABS # 0.52 K/uL (0.11-0.59); NEUT % 43.7 %; NEUT ABS # 2.74 K/uL (1.4-6.5); PLATELET COUNT 410 K/uL (130-400); RED CELL DISTRIBUTION WIDTH CV 12.6 % (11.5-14.5); RED CELL DISTRIBUTION WIDTH SD 42.9 fL (36.4-46.3); WHITE BLOOD COUNT 6.26 K/uL (4.8-10.8)
[2017-12-13 23:28] LABS: ALBUMIN 3.7 gm/dl (3.4-5.0); ALKALINE PHOSPHATASE 65 U/L (45-117); ALT/SGPT 15 U/L (12-78); AST/SGOT 15 U/L (15-37); BLOOD UREA NITROGEN 10 mg/dl (7-18); CALCIUM 8.8 mg/dl (8.5-10.1); CARBON DIOXIDE 24 mmol/L (21-32); CREATININE 0.59 mg/dl (0.60-1.20); GLUCOSE 84 mg/dl (70-99); LIPASE 122 U/L (73-393); POTASSIUM 3.4 mmol/L (3.5-5.1); SODIUM 137 mmol/L (136-145); TOTAL PROTEIN 6.6 gm/dl (6.4-8.2)
[2017-12-13] MEDS ORDERED: POTASSIUM CHLORIDE 20 MEQ/15 ML UDC PO STA (23:35)
--- NOTE | 2017-12-14 00:08 | EMERGENCY ROOM VISIT NOTE ---
History Report prepared by Mere: Laura Schwarz Under the Supervision of: Dr. Cain Munoz M.D. First contact with patient: 22:56 Chief Complaint: ABDOMINAL PAIN Stated Complaint: BACK,ABD PAIN,NAUSEA,HEADACHE,DIZZY History of Present Illness The patient is a 37 year old female who presents to the Emergency Room with complaints of persistent left lower abdominal pain that began earlier today. She reports that her pain is mostly in her abdomen, but it radiates to her lower back. The patient states that she has been nauseous and has a distended abdomen, but denies any vomiting, diarrhea, urinary symptoms, or chance of due to a hysterectomy. She notes a history of cysts, but denies a history appendicitis, cholecystitis, or diverticulitis. Source of History: patient Onset: earlier today Position: abdomen (LLQ) Quality: other (abdominal pain) Timing: other (persistent) Associated Symptoms: + nausea, No vomiting, No diarrhea, No urinary symptoms Note: Associated symptoms include: distended abdomen. Patient denies: chance of . Review of Systems See HPI for pertinent positives & negatives. A total of 10 systems reviewed and were otherwise negative. Past Medical & Surgical Medical Problems: (1) Anemia (2) Depression (3) Ovarian cyst Surgical Problems: (1) Gastric bypass status for obesity (2) S/P section (3) S/P hysterectomy Family History No pertinent family history Social History Smoking Status: Never Smoker Alcohol Use: none Marital Status: Housing Status: lives with family Occupation Status: employed Current/Historical Medications Scheduled Amphetamine-Dextroamphetamine 30MG (Adderall 30MG), 30 MG PO BID Bupropion HCl (Wellbutrin Xl), 1 TAB PO DAILY Citalopram Hydrobromide (Celexa), 40 MG PO DAILY Docusate Sodium (Colace), 1 CAP PO BID Ferrous Sulfate (Iron), 1 TAB PO DAILY Ranitidine (Zantac), 300 MG PO DAILY Sennosides (Senokot), 8.6 MG PO HS Scheduled PRN Oxycodone Immediate Rel Tab (Roxicodone Ir), 1-2 TAB PO Q4H PRN for Severe Pain Tramadol (Ultram), 50 MG PO Q8H PRN for Pain Allergies Coded Allergies: No Known Allergies (Unverified , 12/14/17) Physical Exam Vital Signs Date Time Temp Pulse Resp B/P (MAP) Pulse Ox O2 Delivery O2 Flow Rate FiO2 12/14/17 02:30 78 16 113/57 98 12/14/17 00:52 76 16 112/60 98 Room Air Physical Exam GENERAL: Awake, alert, well-appearing, in no acute distress HENT: Normocephalic, atraumatic. Oropharynx unremarkable. EYES: Normal conjunctiva. Sclera non-icteric. NECK: Supple. No nuchal rigidity. FROM. No JVD. RESPIRATORY: Clear to auscultation. CARDIAC: Regular rate, normal rhythm. Extremities warm and well perfused. Pulses equal. ABDOMEN: Mildly tender in the left lower quadrat. Soft, non-distended. No rebound or guarding. No masses. RECTAL: Deferred. MUSCULOSKELETAL: Chest examination reveals no tenderness. The back is symmetrical on inspection without obvious abnormality. There is no CVA tenderness to palpation. No joint edema. LOWER EXTREMITIES: Calves are equal size bilaterally and non-tender. No edema. No discoloration. NEURO: Normal sensorium. No sensory or motor deficits noted. SKIN: No rash or jaundice noted. Medical Decision & Procedures ER Provider Diagnostic Interpretation: Radiology results as stated below per my review and radiologist interpretation: US PELVIC/ENDOVAG: Presumed complex dominant follicle in the left ovary measuring 1.7 cm. No torsion. Right ovary is unremarkable. No lesion or torsion. The uterus is absent. Radiologist: Charlene Potts M.D. Laboratory Results 12/13/17 21:46 Red Blood Count 3.63, Mean Corpuscular Volume 92.6, Mean Corpuscular Hemoglobin 30.9, Mean Corpuscular Hemoglobin Concent 33.3, Mean Platelet Volume 9.7, Neutrophils (%) (Auto) 43.7, Lymphocytes (%) (Auto) 43.3, Monocytes (%) (Auto) 8.3, Eosinophils (%) (Auto) 3.2, Basophils (%) (Auto) 1.3, Neutrophils # (Auto) 2.74, Lymphocytes # (Auto) 2.71, Monocytes # (Auto) 0.52, Eosinophils # (Auto) 0.20, Basophils # (Auto) 0.08 12/13/17 21:46 Test 12/13/17 21:45 12/13/17 21:46 Urine Color YELLOW Urine Appearance CLEAR (CLEAR) Urine pH 5.0 (4.5-7.5) Urine Specific [place] 1.027 (1.000-1.030) Urine Protein NEG (NEG) Urine Glucose (UA) NEG (NEG) Urine Ketones NEG (NEG) Urine Occult Blood NEG (NEG) Urine Nitrite NEG (NEG) Urine Bilirubin NEG (NEG) Urine Urobilinogen NEG (NEG) Urine Leukocyte Esterase NEG (NEG) White Blood Count 6.26 K/uL (4.8-10.8) Red Blood Count 3.63 M/uL (4.2-5.4) Hemoglobin 11.2 g/dL (12.0-16.0) Hematocrit 33.6 % (37-47) Mean Corpuscular Volume 92.6 fL (80-100) Mean Corpuscular Hemoglobin 30.9 pg (25-34) Mean Corpuscular Hemoglobin Concent 33.3 g/dl (32-36) Platelet Count 410 K/uL (130-400) Mean Platelet Volume 9.7 fL (7.4-10.4) Neutrophils (%) (Auto) 43.7 % Lymphocytes (%) (Auto) 43.3 % Monocytes (%) (Auto) 8.3 % Eosinophils (%) (Auto) 3.2 % Basophils (%) (Auto) 1.3 % Neutrophils # (Auto) 2.74 K/uL (1.4-6.5) Lymphocytes # (Auto) 2.71 K/uL (1.2-3.4) Monocytes # (Auto) 0.52 K/uL (0.11-0.59) Eosinophils # (Auto) 0.20 K/uL (0-0.5) Basophils # (Auto) 0.08 K/uL (0-0.2) RDW Standard Deviation 42.9 fL (36.4-46.3) RDW Coefficient of Variation 12.6 % (11.5-14.5) Immature Granulocyte % (Auto) 0.2 % Immature Granulocyte # (Auto) 0.01 K/uL (0.00-0.02) Urine Test NEG (NEG) Anion Gap 6.0 mmol/L (3-11) Estimated GFR () 135.7 Estimated GFR (Non- 117.1 BUN/Creatinine Ratio 17.1 (10-20) Calcium Level 8.8 mg/dl (8.5-10.1) Total Bilirubin 0.3 mg/dl (0.2-1) Direct Bilirubin < 0.1 mg/dl (0-0.2) Aspartate Amino Transf (AST/SGOT) 15 U/L (15-37) Alanine Aminotransferase (ALT/SGPT) 15 U/L (12-78) Alkaline Phosphatase 65 U/L (45-117) Total Protein 6.6 gm/dl (6.4-8.2) Albumin 3.7 gm/dl (3.4-5.0) Lipase 122 U/L (73-393) Labs reviewed by ED physician. Medications Administered Medications (Trade) Dose Ordered Sig/Maylin Route Start Time Stop Time Status Last Admin Dose Admin Metoclopramide HCl (Reglan Inj) 10 mg STK-MED ONCE .ROUTE 12/13/17 22:33 12/13/17 22:34 DC 12/13/17 22:33 10 MG Ketorolac Tromethamine (Toradol Inj) 30 mg STK-MED ONCE .ROUTE 12/13/17 22:33 12/13/17 22:34 DC 12/13/17 22:33 30 MG Sodium Chloride 1,000 ml @ 999 mls/hr Q1H1M STAT IV 12/13/17 22:57 12/13/17 23:57 DC 12/13/17 22:57 999 MLS/HR Potassium Chloride (Jaja [place]iel Elix) 40 meq NOW STAT PO 12/13/17 23:35 12/13/17 23:37 DC 12/14/17 00:33 40 MEQ Hydromorphone HCl (Dilaudid Inj) 1 mg NOW STAT IV 12/14/17 00:15 12/14/17 00:16 DC 12/14/17 00:33 1 MG Ondansetron HCl (Zofran Inj) 4 mg NOW STAT IV 12/14/17 00:15 12/14/17 00:16 DC 12/14/17 00:33 4 MG Oxycodone HCl (Roxicodone Immediate Rel 5MG Home Pack) 1 homepack UD ONCE PO 12/14/17 02:30 12/14/17 02:31 DC 12/14/17 02:30 1 HOMEPACK ED Course 2223: Past medical records reviewed. The patient was evaluated in room B9. A complete history and physical examination was performed. 2233: Ordered Toradol Inj 30mg and Reglan Inj 10mg. 2257: Ordered Sodium Chloride 1000ml @ 999 mls/hr IV. 2315: Ordered Ioversol 100ml IV. 2320: I reevaluated the patient, who is resting comfortably. She states that she is feeling significantly better. 2335: Ordered Potassium Chloride 40meq PO. Medical Decision Differential diagnosis: Etiologies such as appendicitis, diverticulitis, PUD, biliary pathology, UTI, pancreatitis, obstruction, mesenteric ischemia, aortic pathology, infections, inflammatory bowel disease, renal colic, as well as others were entertained. This is a 37-year-old female has a history of gastric bypass who presents to the emergency department complaining of left lower quadrant abdominal pain. Based on the patient's presentation as well as her past medical history she was sent for an ultrasound concerning for left ovarian cyst. Patient was sent for CAT scan of the abdomen and pelvis. This did not show any acute process. In addition the patient has normal CBC normal renal profile normal liver profile as well as normal lipase. I do feel that the patient is well enough to be discharged home for follow-up with her primary care physician. Patient was in agreement with the treatment plan. Medication Reconcilliation Current Medication List: was personally reviewed by me Impression Primary Impression: Ovarian cyst Additional Impression: Lower abdominal pain Scribe Attestation The scribe's documentation has been prepared under my direction and personally reviewed by me in its entirety. I confirm that the note above accurately reflects all work, treatment, procedures, and medical decision making performed by me. Departure Information Dispostion Home / Self-Care Prescriptions Docusate Sodium (COLACE) 100 Mg Cap 1 CAP PO BID for 30 Days, #60 CAP Prov: Cain Munoz MD 12/14/17 Sennosides (SENOKOT) 8.6 Mg Tab 8.6 MG PO HS for 30 Days, #30 TAB Prov: Cain Munoz MD 12/14/17 Oxycodone Immediate Rel Tab (ROXICODONE IR) 5 Mg Tab 1-2 TAB PO Q4H Y for Severe Pain, #14 TAB Prov: Cain Munoz MD 12/14/17 Referrals Elida Lopez DO (PCP) Patient Instructions [facility] Problem Qualifiers Primary Impression: Ovarian cyst Laterality: left Qualified Codes: N83.202 - Unspecified ovarian cyst, left side
[2017-12-14] MEDS ORDERED: ONDANSETRON INJ 2 MG/ML 2 ML VIAL IV STA (00:15)
[2017-12-14] MEDS ORDERED: HYDROmorphone INJ 1 MG/ML SYR IV STA (00:15)
[2017-12-14] MEDS ORDERED: OXYC1TAB3 PO (02:21)
[2017-12-14] MEDS ORDERED: SENN1TAB77 PO (02:25)
[2017-12-14] MEDS ORDERED: DOCU-94 PO (02:25)
[2017-12-14 02:30] VITALS: BP 113/57; PULSE 78; O2SAT 98
[2017-12-14] MEDS ORDERED: OXYCODONE IR HOME PACK PO ONE (02:30)
--- NOTE | 2017-12-14 06:29 | DIAGNOSTIC IMAGING REPORT ---
PELVIC COMPLETE NON OB CLINICAL HISTORY: Pt c/O LLQ pelvic pain COMPARISON STUDY: None FINDINGS: The uterus measured surgically absent. The endometrial stripe measured absent. The right ovary measured 2.4 cm maximum dimension with normal vascular flow. The left ovary measured 2.9 cm maximum dimension with normal vascular flow. Complex 1.8 cm left ovarian cyst.. There is no ultrasonographic evidence of ovarian torsion. It should be noted that ovarian torsion can be present with normal Doppler ultrasonographic findings. There was no evidence of pathologic free pelvic fluid. IMPRESSION: 1. Prior hysterectomy. 2. 1.7 cm complex left ovarian cyst. 3. Normal vascular flow is confirmed to both ovaries. The above report was generated using voice recognition software. It may contain grammatical, syntax or spelling errors. Electronically signed by: Tonio Rodriguez M.D. 12/14/2017 6:28 AM Dictated Date/Time: 12/14/2017 6:26 AM
--- NOTE | 2017-12-14 06:58 | DIAGNOSTIC IMAGING REPORT ---
CT ABD/PELVIS IV AND ORAL CONT CLINICAL HISTORY: Left lower quadrant abdominal pain COMPARISON STUDY: 04/16/2016 TECHNIQUE: Following the IV administration of 93 mL of Optiray-320, CT scan of the abdomen and pelvis was performed from the lung bases to the proximal femurs. Images are reviewed in the axial, sagittal, and coronal planes. IV contrast was administered without complication. A dose lowering technique was utilized adhering to the principles of ALARA. CT DOSE: 900.51 mGycm FINDINGS: Lower chest: The heart is normal in size and configuration, without pericardial effusion. The lung bases and pleural spaces are clear. Liver: The contrast-enhanced liver is normal in size, contour, and attenuation. There is no intrahepatic biliary ductal dilatation. The hepatic veins and portal veins are patent. Gallbladder: Unremarkable. Spleen: Normal in size and attenuation. Pancreas: Unremarkable. Adrenal glands: Unremarkable. Kidneys: There is symmetric renal cortical enhancement. The kidneys are normal in size without hydronephrosis. Bowel: There are postsurgical changes of a gastric bypass and Vy-en-Y anastomosis. There are no transition zones indicate bowel obstruction. There is no evidence of acute diverticulitis. The appendix is felt to be normal. Peritoneum: There is no intraperitoneal free air or abdominal ascites. Vasculature: The abdominal aorta is normal in course and caliber. Adenopathy: None. Pelvic viscera: The uterus appears surgically absent Skeletal structures: No destructive osseous lesions are seen. IMPRESSION: 1. Postsurgical changes of a gastric bypass and Vy-en-Y anastomosis 2. No evidence of bowel obstruction. No evidence of free air 3. Normal appendix 4. No evidence of acute diverticulitis Electronically signed by: Camron Murphy M.D. 12/14/2017 6:56 AM Dictated Date/Time: 12/14/2017 6:54 AM
== END 2017-12-14 02:34 | disposition home or self-care (01) ==
LOC: C.EDB 19:30
DX: N83.202 Unspecified ovarian cyst, left side (principal); R10.30 Lower abdominal pain, unspecified; R11.0 Nausea; D64.9 Anemia, unspecified; K21.9 Gastro-esophageal reflux disease without esophagitis; Z79.899 Other long term (current) drug therapy; Z87.42 Personal history of other diseases of the female genital tract